=== PATIENT | female | born 1965 | race Asian ===

== ENCOUNTER 2018-06-11 10:24 | Outpatient (CLI) | payer BC ==
--- NOTE | 2018-06-11 11:56 | CT ---
CT LUMBAR SPINE WITHOUT CONTRAST: Date: 06-11-18 History: Lower back pain. Lumbar radiculopathy. FINDINGS: The vertebral body heights of the lumbar spine are within normal limits. No fracture or subluxation i s seen. L1-2: There is no disc bulge or disc herniation. Central spinal canal and neural foramina are patent. L2-3: There is no disc bulge or disc herniation. Central spinal canal and neural foramina are patent. L3-4: There is a mild broad based disc bulge/posterior osteophyte formation. This does result in mild effacement of the ventral aspect of the thecal sac with minimal encroachment on each neural foramen. L4-5: There is mild disc osteophyte complex which results in slight effacement of the ventral aspect of the thecal sac. There is mild bilateral neural foraminal narrowing present. L5-S1: There is a mild broad based disc bulge with broad based left paracentral disc protrusion. This results in moderate right and severe left sided neural foraminal narrowing without defined fat plane s surrounding the L5 nerve root within the neural foramen at this level. There is mild mass effect on the traversing left S1 nerve root just as the nerve root exits the thecal sac without significant di splacement of the nerve root. There is no significant narrowing of the thecal sac. Paravertebral soft tissues have a normal CT appearance. Minimal vascular calcifications are seen in the abdominal aorta. The remainder of the retroperitoneal structures have a normal CT appearance. IMPRESSION: Mild disc degenerative changes with findings greatest at the L5-S1 level where there is a broad based disc bulge and left paracentral broad based disc protrusion which results in severe left sided neura l foraminal narrowing. There is also encroachment on the traversing left S1 nerve root just as the ne rve root exits the thecal sac. POS: PHIL
== END 2018-06-11 10:25 | disposition home or self-care (01) ==
LOC: SCSCT 10:24
PROVIDERS: ATTEND Neurological Surgery
DX: M51.16 Intervertebral disc disorders with radiculopathy, lumbar region (principal); M51.27 Other intervertebral disc displacement, lumbosacral region; M51.87 Other intervertebral disc disorders, lumbosacral region; M99.83 Other biomechanical lesions of lumbar region
CPT/HCPCS: 72131